=== PATIENT | female | born 1980 ===

== ENCOUNTER 2024-08-11 08:15 | Inpatient (IN) | payer OTHER ==
[~2024-08-11] VITALS: Ht 152.4 cm; Wt 70.3 kg
[2024-08-11 09:30] VITALS: BP 114/78
[2024-08-11 09:31] LABS: BASO % 0.6 % (0.1-1.2); EOS # 0.07 (0.04-0.54); HEMATOCRIT 38.2 % (34.1-44.9); HEMOGLOBIN 12.3 g/dL (11.2-15.7); LYMPH # 1.92 (1.18-3.74); LYMPH % 26.7 % (19.3-53.1); MEAN CORPUSCULAR HEMOGLOBIN 27.2 pg (25.6-32.2); MONO # 0.39 (0.24-0.82); MONO % 5.4 % (4.7-12.5); NEUT # 4.75 (1.56-6.13); PLATELET COUNT 281 K/uL (163-369); RED BLOOD COUNT 4.53 M/uL (3.93-5.22); RED CELL DISTRIBUTION WIDTH 14.1 % (11.6-14.4)
[2024-08-11 09:33] VITALS: BP 145/98
[2024-08-11 09:34] VITALS: BP 130/90
[2024-08-11 10:11] LABS: INR < 0.93; PROTHROMBIN TIME 10.1 SECONDS (9.0-11.5)
[2024-08-11 10:16] LABS: ALBUMIN 3.7 gm/dL (3.4-5.0); BILIRUBIN TOTAL 0.32 mg/dL (0.3-1.2); CREATININE SERUM 0.66 mg/dL (0.55-1.02); GFR 98.21; GLOBULINA 3.9 G/DL (2.4-3.5); POTASSIUM 4.5 mEq/L (3.5-5.1); TOTAL PROTEIN 7.6 gm/dL (6.4-8.2)
[2024-08-18] MEDS ORDERED: POVIDONE-IODINE 118 ML BOTT TOP ONE (10:23)
[2024-08-18] MEDS ORDERED: CLINDAMYCIN PHOSPHATE 150 MG/ML (900mg) ONE (10:23)
[2024-08-18] MEDS ORDERED: METRONIDAZOLE/SODIUM CHLORIDE 500 MG/100 ML PIGGYBACK IV ONE ×2 (10:59→11:45)
[2024-08-18] MEDS ORDERED: ERYTHROMYCIN LACTOBIONATE 500 MG VIAL IV ONE (11:00)
[2024-08-18] MEDS ORDERED: SUGAMMADEX SODIUM 200 MG/2 ML VIAL IV ONE (12:53)
[2024-08-18] MEDS ORDERED: MEPERIDINE HCL/PF 50 MG/ML VIAL IM PRN (13:30)
[2024-08-18] MEDS ORDERED: RINGERS SOLUTION,LACTATED 1,000 ML IV SCH (13:30)
[2024-08-18] MEDS ORDERED: PROMETHAZINE HCL 50 MG/ML AMPUL IM PRN (13:30)
[2024-08-18 14:44] VITALS: BP 114/78
[2024-08-18 15:52] VITALS: BP 116/77
[2024-08-18] MEDS ORDERED: KETOROLAC TROMETHAMINE 30 MG VIAL IV SCH (17:00)
[2024-08-18] MEDS ORDERED: MORPHINE SULFATE 4 MG/ML CARTRIDGE IV PRN (18:00)
[2024-08-18 20:00] VITALS: BP 117/77
[2024-08-18 23:51] VITALS: BP 113/69
[2024-08-19] MEDS ORDERED: OxyCODONE HCL/APAP UD (PERCOCET) PO PRN (07:00)
[2024-08-19 08:25] LABS: BASO % 0.3 % (0.1-1.2); EOS # 0.02 (0.04-0.54); EOS % 0.2 % (0.7-7.0); HEMATOCRIT 35.1 % (34.1-44.9); HEMOGLOBIN 11.2 g/dL (11.2-15.7); LYMPH # 1.88 (1.18-3.74); LYMPH % 17.8 % (19.3-53.1); MEAN CORPUSCULAR HEMOGLOBIN 27.5 pg (25.6-32.2); MONO # 0.74 (0.24-0.82); NEUT # 7.84 (1.56-6.13); NEUT % 74.3 % (34.0-71.1); PLATELET COUNT 245 K/uL (163-369); RED BLOOD COUNT 4.07 M/uL (3.93-5.22); RED CELL DISTRIBUTION WIDTH 14.5 % (11.6-14.4)
[2024-08-19 08:54] VITALS: BP 128/84
[2024-08-19] MEDS ORDERED: DOCUSATE SODIUM 100MG CAP PO SCH (09:00)
[2024-08-19] MEDS ORDERED: IBUprofen 800 MG TABLET PO SCH (09:00)
[2024-08-19 13:55] VITALS: BP 136/82
[2024-08-19 15:36] VITALS: BP 126/81
== END 2024-08-19 19:22 | disposition home or self-care (01) | DRG 743 ==
LOC: SURH 08-18 08:15 → O/R 08-18 09:35 → SURH 08-18 11:30 → OB/GYN 08-18 13:36
PROVIDERS: ADMIT Obstetrics & Gynecology; ATTEND Obstetrics & Gynecology
PROC: 0UT74ZZ Resection of Bilateral Fallopian Tubes, Percutaneous Endoscopic Approach (ICD-10-PCS; 2024-08-18)
PROC: 0TJB8ZZ Inspection of Bladder, Via Natural or Artificial Opening Endoscopic (ICD-10-PCS; 2024-08-18)
PROC: 0UT94ZZ Resection of Uterus, Percutaneous Endoscopic Approach (ICD-10-PCS; principal; 2024-08-18 11:30)
DX: D25.2 Subserosal leiomyoma of uterus (principal); N84.0 Polyp of corpus uteri; Z90.710 Acquired absence of both cervix and uterus